=== PATIENT | female | born 1980 | race Caucasian/White ===

== ENCOUNTER 2016-09-02 04:37 | Inpatient (IN) | payer MEDICAID ==
[~2016-09-02] VITALS: Ht 161.3 cm; Wt 140.0 kg
[2016-09-02] MEDS ORDERED: OXYTOCIN 30U/ 0.9% NaCL 500ML 500 ML IV PRN (04:49)
[2016-09-02] MEDS ORDERED: AMPICILLIN 2 GM in SODIUM CHLORIDE 0.9% 100 ML IVPB STA (04:49)
[2016-09-02] MEDS ORDERED: OXYTOCIN 30U/ 0.9% NaCL 500ML 500 ML IV ONE (04:49)
[2016-09-02] MEDS: D5%-LACTATED RINGERS 1,000 ML IV SCH ×3 (04:49→17:52)
[2016-09-02] MEDS: LACTATED RINGERS 1,000 ML IV SCH ×4 (04:49→14:05)
[2016-09-02] MEDS ORDERED: ONDANSETRON 2MG/ML, 2ML IVPush PRN (05:00)
[2016-09-02] MEDS ORDERED: TERBUTALINE 1 MG/ML, 1ML IVPush PRN ×2 (05:00)
[2016-09-02] MEDS: AMPICILLIN 1 GM in SODIUM CHLORIDE 0.9% 50 ML IVPB SCH ×4 (05:00→17:15)
[2016-09-02] MEDS ORDERED: OXYTOCIN 30U/ 0.9% NaCL 500ML 500 ML ONE (05:00)
[2016-09-02] MEDS ORDERED: FENTANYL PF 100 MCG/2ML IVPush PRN (05:00)
[2016-09-02] MEDS ORDERED: PLEASE ENTER ALLERGIES MC SCH ×2 (05:00)
[2016-09-02] MEDS ORDERED: NEWBORN KIT ONE (05:00)
[2016-09-02] MEDS ORDERED: FENTANYL PF 100 MCG/2ML IV PRN (05:00)
[2016-09-02 05:22] VITALS: BP 142/69
[2016-09-02] MEDS ORDERED: FENTANYL PF 100 MCG/2ML ONE ×2 (07:22→10:32)
[2016-09-02 07:55] VITALS: BP 133/84
[2016-09-02] MEDS ORDERED: BUPIVACAINE 0.25% ONE (10:32)
[2016-09-02] MEDS ORDERED: FENTANYL/BUPIV./NS/PF 250 ML EPIDCONT ONE (10:32)
[2016-09-02] MEDS ORDERED: FENTANYL/BUPIV./NS/PF 250 ML EPIDCONT SCH (11:11)
[2016-09-02] MEDS ORDERED: LACTATED RINGERS 1,000 ML IVBOLUS PRN (11:30)
[2016-09-02 11:41] VITALS: BP 137/74
[2016-09-02 17:44] VITALS: BP 133/73
[2016-09-02] MEDS: OXYTOCIN 30U/ 0.9% NaCL 500ML 500 ML IV SCH (19:05)
[2016-09-02] MEDS ORDERED: MISOPROSTOL 200 MCG TABLET PR PRN (19:30)
[2016-09-02] MEDS ORDERED: DIPH,PERTUSS(ACELL),TET VAC/PF NC IM-VACC PRN (19:30)
[2016-09-02] MEDS ORDERED: CARBOPROST TROMETHAMINE 250 MCG/ML, 1ML IM PRN (19:30)
[2016-09-02] MEDS ORDERED: RHOGAM FROM BLOOD BANK 1 NOTE EA IM/IV ONE (19:30)
[2016-09-02] MEDS ORDERED: ACETAMINOPHEN 325 MG TABLET PO PRN (19:30)
[2016-09-02] MEDS ORDERED: OXYcodone/APAP 5/325MG TABLET PO PRN ×2 (19:30)
[2016-09-02] MEDS ORDERED: MEASLES,MUMPS&RUBELLA VACC/PF 0.5 ML SQ PRN (19:30)
[2016-09-02] MEDS: LABETALOL 200 MG TABLET PO SCH (21:00)
[2016-09-02 22:10] VITALS: BP 105/66
[2016-09-03 01:50] VITALS: BP 124/79
[2016-09-03 05:00] VITALS: BP 122/76
[2016-09-03] MEDS: OXYTOCIN 30U/ 0.9% NaCL 500ML 500 ML IV SCH ×2 (05:05→15:05)
[2016-09-03] MEDS: IBUPROFEN 600 MG TABLET PO PRN ×2 (05:19→14:43)
[2016-09-03 07:45] VITALS: BP 116/75
[2016-09-03] MEDS: LABETALOL 200 MG TABLET PO SCH ×2 (08:00→18:19)
[2016-09-03] MEDS: PRENATAL VIT/IRON/FA 1 EACH TABLET PO SCH (09:02)
[2016-09-03] MEDS: DOCUSATE 100 MG CAPSULE PO PRN (09:02)
[2016-09-03 12:05] VITALS: BP 122/82
[2016-09-03 16:20] VITALS: BP 131/87
[2016-09-03 20:20] VITALS: BP 128/83
[2016-09-04 00:20] VITALS: BP 124/80
[2016-09-04] MEDS: OXYTOCIN 30U/ 0.9% NaCL 500ML 500 ML IV SCH ×2 (01:05→11:05)
[2016-09-04 04:03] VITALS: BP 107/67
[2016-09-04 08:20] VITALS: BP 160/97
[2016-09-04] MEDS: IBUPROFEN 600 MG TABLET PO PRN ×2 (08:25→18:17)
[2016-09-04] MEDS: DOCUSATE 100 MG CAPSULE PO PRN (08:25)
[2016-09-04] MEDS: PRENATAL VIT/IRON/FA 1 EACH TABLET PO SCH (08:25)
[2016-09-04] MEDS: LABETALOL 200 MG TABLET PO SCH ×2 (08:30→18:17)
[2016-09-04 18:17] VITALS: BP 142/94
[2016-09-04] MEDS ORDERED: IBUP-1222 PO (19:26)
[2016-09-04] MEDS ORDERED: OXYC-302 PO (19:27)
[2016-09-04] MEDS ORDERED: LABE200T3 PO (19:28)
== END 2016-09-04 20:08 | disposition home or self-care (01) | DRG 774 ==
LOC: LDIP 04:37 → 2NW 22:07
PROVIDERS: ADMIT Obstetrics & Gynecology Maternal & Fetal Medicine; ATTEND Obstetrics & Gynecology Maternal & Fetal Medicine
PROC: 10E0XZZ Delivery of Products of Conception, External Approach (ICD-10-PCS; principal; 2016-09-02)
PROC: 3E033VJ Introduction of Other Hormone into Peripheral Vein, Percutaneous Approach (ICD-10-PCS; 2016-09-02)
DX: O10.92 Unspecified pre-existing hypertension complicating childbirth (principal); Z68.43 Body mass index [BMI] 50.0-59.9, adult; O99.214 Obesity complicating childbirth; E66.01 Morbid (severe) obesity due to excess calories; O35.0XX0 Maternal care for (suspected) central nervous system malformation in fetus, not applicable or unspecified; O99.824 Streptococcus B carrier state complicating childbirth; Z23 Encounter for immunization; Z37.0 Single live birth; Z3A.39 39 weeks gestation of pregnancy
CPT/HCPCS: 36415; 82962; 85025; 86850; 86900; J0290; J3010; J2590; J7120; J7121

== ENCOUNTER 2019-09-13 03:27 | Inpatient (IN) | payer MEDICAID ==
[~2019-09-13] VITALS: Ht 160 cm; Wt 147.6 kg
[~2019-09-13 03:27] MED LIST: IBUP-1222 PO; LABE200T6 PO; OXYC-302 PO
[2019-09-13] MEDS ORDERED: SODIUM CHLORIDE 0.9% 1,000ML IVBOLUS ONE ×2 (04:00→12:00)
--- NOTE | 2019-09-13 04:15 | NUR ---
PATIENT UPDATED ON PLAN OF CARE. LAB AT BEDSIDE COLLECTING LABS.
[2019-09-13 04:35] LABS: MEAN CORPUSCULAR HEMOGLOBIN 26.6 pg (27.0-34.8); MEAN CORPUSCULAR VOLUME 80.6 fL (80-100); MEAN PLATELET VOLUME 7.3 fL (7.4-10.4); PLATELET COUNT 184 x10^3/uL (130-400); RED BLOOD COUNT 4.38 x10^6/uL (3.82-5.3); RED CELL DISTRIBUTION WIDTH 14.9 % (9.6-15.2)
[2019-09-13 04:42] LABS: ALANINE AMINOTRANSFERASE 36 U/L (12-78); ALBUMIN 2.6 g/dL (3.4-5.0); ANION GAP 11 mmol/L (5-15); CALCIUM 7.5 mg/dL (8.5-10.1); CHLORIDE 96 mmol/L (98-107); CREATININE 2.58 mg/dL (0.55-1.02)
[2019-09-13 04:45] LABS: ALKALINE PHOSPHATASE 82 U/L (45-117); BILIRUBIN,TOTAL 0.9 mg/dL (0.2-1.0); TOTAL PROTEIN 6.9 g/dL (6.4-8.2)
[2019-09-13] MEDS ORDERED: POTASSIUM CHLORIDE 20 MEQ in SODIUM CHLORIDE 0.9% 250 ML IV ONE (05:00)
[2019-09-13 05:01] LABS: MD YES
[2019-09-13 05:02] LABS: <PLATELET ESTIMATE> ADEQUATE; <PLT MORPHOLOGY> NORMAL PLT MORPH; <RBC MORPHOLOGY> NORMAL; BAND#(MANUAL) 0.92 x10^3/uL; BANDS%(MANUAL) 4 % (0-7); LYMPH#(MANUAL) 1.37 x10^3/uL (1-3.4); LYMPHS% (MANUAL) 6 % (22-44); METAMYELOCYTES# (MANUAL) 0.23 x10^3/uL (0-0); METAMYELOCYTES% (MANUAL) 1 % (0-1); MONOS#(MANUAL) 0.92 x10^3/uL (0.3-2.7); MONOS% (MANUAL) 4 % (2-9); SEG#(MANUAL) 19.47 x10^3/uL (1.8-6.8); SEGS% (MANUAL) 85 % (42-75)
[2019-09-13] MEDS ORDERED: LACTATED RINGERS 1,000 ML IVBOLUS ONE (05:30)
[2019-09-13] MEDS ORDERED: NS + 20MEQ KCL 1,000 ML IV SCH (05:53)
--- NOTE | 2019-09-13 06:36 | NUR ---
PATIENT TO RESTROOM, TOLERATED WELL. AMBULATORY WITHOUT COMPLICATIONS TO RESTROOM. PATIENT WILL BE TRANSFERED UPSTRAIRS TO ADMISSION ROOM 403-1
[2019-09-13] MEDS ORDERED: FENTANYL PF 100 MCG/2ML ONE (07:09)
[2019-09-13] MEDS ORDERED: MIDAZOLAM 1 MG/ML, 2ML ONE (07:09)
[2019-09-13] MEDS ORDERED: CHLORHEXIDINE 15 ML UDC ONE (07:25)
[2019-09-13] MEDS ORDERED: hydrALAzine 20 MG/ML, 1ML IVPush PRN (07:30)
[2019-09-13] MEDS: LACTATED RINGERS 1,000 ML IV SCH ×2 (07:30→17:22)
[2019-09-13] MEDS ORDERED: ZOLPIDEM 5MG TABLET PO PRN (07:30)
[2019-09-13] MEDS ORDERED: POLYETHYLENE GLYCOL 17 GM PACKET PO PRN (07:30)
[2019-09-13] MEDS ORDERED: CHLORHEXIDINE 15 ML UDC MM ONE (07:30)
[2019-09-13] MEDS ORDERED: PHARMACY MAY ADJ FOR RENAL FX MC SCH (07:30)
[2019-09-13] MEDS ORDERED: BISACODYL 10 MG SUPP PR PRN (07:30)
[2019-09-13] MEDS ORDERED: METOCLOPRAMIDE 5 MG/ML, 2ML IVPush PRN (07:30)
[2019-09-13] MEDS ORDERED: morphine SULFATE 10 MG/ML, 1ML IV PRN (07:30)
[2019-09-13] MEDS ORDERED: SODIUM CHLORIDE 0.9% 1,000ML IV ONE (07:30)
[2019-09-13] MEDS ORDERED: SUCCINYLCHOLINE 20 MG/ML, 10ML ONE (07:37)
[2019-09-13] MEDS ORDERED: PROPOFOL 10 MG/ML, 20ML ONE (07:37)
[2019-09-13] MEDS ORDERED: HYDROcodone/APAP 7.5-325MG/15ML UDC PO PRN (08:00)
[2019-09-13] MEDS ORDERED: FENTANYL PF 100 MCG/2ML IV PRN (08:00)
[2019-09-13] MEDS ORDERED: PROMETHAZINE 25 MG/ML, 1ML IVPush PRN (08:00)
[2019-09-13] MEDS ORDERED: MEPERIDINE/PF 25MG/0.5ML IVPush PRN (08:00)
[2019-09-13] MEDS ORDERED: HYDROmorphone 1 MG/ML, 1ML INJ IVPush PRN (08:00)
[2019-09-13] MEDS: SENNA/DOCUSATE TABLET PO SCH (09:00)
[2019-09-13] MEDS ORDERED: FAMOTIDINE 20 MG TABLET PO SCH (09:00)
[2019-09-13] MEDS ORDERED: SODIUM CHLORIDE 0.9%, 500ML IVBOLUS ONE (09:00)
[2019-09-13] MEDS ORDERED: ALBUMIN HUMAN 25% 100 ML IV ONE (09:00)
[2019-09-13] MEDS: PIPERACILLIN/TAZO/PMX 3.375GM 50 ML IVPB SCH ×3 (09:30→20:51)
[2019-09-13 09:59] VITALS: BP 85/50
[2019-09-13 11:48] VITALS: BP 80/54
[2019-09-13 12:27] VITALS: BP 99/60
[2019-09-13] MEDS ORDERED: AMLO5TAB10 PO (12:37)
[2019-09-13] MEDS ORDERED: HYDR25TA6 PO (12:37)
[2019-09-13 13:12] LABS: MICROSCOPIC INDICATED
[2019-09-13 18:26] VITALS: BP 94/65
[2019-09-13] MEDS: FAMOTIDINE 20 MG TABLET PO SCH (20:51)
[2019-09-13] MEDS: ALBUMIN HUMAN 25% 100 ML IV SCH (20:52)
[2019-09-13] MEDS ORDERED: HYDROcodone/APAP 5/325 TABLET ONE (21:14)
[2019-09-14 02:00] VITALS: BP 103/45
[2019-09-14] MEDS: LACTATED RINGERS 1,000 ML IV SCH (03:00)
[2019-09-14] MEDS: ALBUMIN HUMAN 25% 100 ML IV SCH (03:00)
[2019-09-14] MEDS: PIPERACILLIN/TAZO/PMX 3.375GM 50 ML IVPB SCH ×4 (03:00→21:07)
[2019-09-14] MEDS: BENZONATATE 100 MG CAPSULE PO PRN ×2 (04:54→21:07)
[2019-09-14 05:35] LABS: MEAN CORPUSCULAR HEMOGLOBIN 26.4 pg (27.0-34.8); MEAN CORPUSCULAR HGB CONC 32.9 g/dL (32.4-35.8); MEAN CORPUSCULAR VOLUME 80.2 fL (80-100); PLATELET COUNT 145 x10^3/uL (130-400); RED BLOOD COUNT 3.72 x10^6/uL (3.82-5.3); RED CELL DISTRIBUTION WIDTH 15.8 % (9.6-15.2)
[2019-09-14 05:36] LABS: ALBUMIN 2.8 g/dL (3.4-5.0); ANION GAP 9 mmol/L (5-15); CALCIUM 7.2 mg/dL (8.5-10.1); CHLORIDE 105 mmol/L (98-107); CHOLESTEROL, TOTAL 107 mg/dL (140-239)
[2019-09-14 05:45] LABS: ALANINE AMINOTRANSFERASE 31 U/L (12-78); ALKALINE PHOSPHATASE 111 U/L (45-117); BILIRUBIN,TOTAL 1.1 mg/dL (0.2-1.0); CHOL/HDL RATIO 10.7; CREATININE 2.06 mg/dL (0.55-1.02); HDL CHOL % 9 % (28-40); HDL CHOLESTEROL (DIRECT) 10 mg/dL (40-60); LDL CHOLESTEROL,CALCULATED 33 mg/dL (54-169); LDL/HDL RATIO 3.3 (0.5-3.0); TOTAL PROTEIN 6.6 g/dL (6.4-8.2); TRIGLYCERIDES 320 mg/dL (50-200); VLDL CHOLESTEROL 64 mg/dL (0-25)
[2019-09-14 06:10] LABS: MD YES
[2019-09-14 06:12] LABS: <PLATELET ESTIMATE> ADEQUATE; <PLT MORPHOLOGY> NORMAL PLT MORPH; <RBC MORPHOLOGY> NORMAL; BAND#(MANUAL) 1.85 x10^3/uL; BANDS%(MANUAL) 13 % (0-7); LYMPH#(MANUAL) 0.57 x10^3/uL (1-3.4); LYMPHS% (MANUAL) 4 % (22-44); MONOS#(MANUAL) 0.43 x10^3/uL (0.3-2.7); MONOS% (MANUAL) 3 % (2-9); SEG#(MANUAL) 11.36 x10^3/uL (1.8-6.8); SEGS% (MANUAL) 80 % (42-75); TOXIC GRAN 1+
[2019-09-14] MEDS: ACETAMINOPHEN 325 MG TABLET PO PRN ×2 (06:28→21:07)
[2019-09-14 06:43] VITALS: BP 111/71
[2019-09-14] MEDS: SENNA/DOCUSATE TABLET PO SCH (08:44)
[2019-09-14] MEDS ORDERED: MAGNESIUM SULFATE PMX 4GM/100M 100 ML IV ONE (09:30)
[2019-09-14] MEDS ORDERED: POTASSIUM CHLORIDE 20 MEQ TAB.ER.PRT PO ONE ×2 (09:30→16:30)
[2019-09-14] MEDS ORDERED: FUROSEMIDE 40 MG/4 ML IV ONE (12:30)
[2019-09-14 14:37] VITALS: BP 126/86
[2019-09-14 18:41] VITALS: BP 114/67
[2019-09-14] MEDS: FAMOTIDINE 20 MG TABLET PO SCH (21:07)
[2019-09-15 01:47] VITALS: BP 98/67
[2019-09-15] MEDS: PIPERACILLIN/TAZO/PMX 3.375GM 50 ML IVPB SCH ×4 (03:06→21:57)
[2019-09-15 05:48] LABS: ANION GAP 7 mmol/L (5-15); CALCIUM 8.5 mg/dL (8.5-10.1); CHLORIDE 103 mmol/L (98-107); CREATININE 1.65 mg/dL (0.55-1.02)
[2019-09-15 05:56] LABS: MEAN CORPUSCULAR HEMOGLOBIN 26.5 pg (27.0-34.8); MEAN CORPUSCULAR VOLUME 80.2 fL (80-100); MEAN PLATELET VOLUME 7.7 fL (7.4-10.4); PLATELET COUNT 199 x10^3/uL (130-400); RED BLOOD COUNT 4.05 x10^6/uL (3.82-5.3); RED CELL DISTRIBUTION WIDTH 16.3 % (9.6-15.2)
[2019-09-15 06:21] VITALS: BP 111/66
[2019-09-15 06:22] LABS: MD YES
[2019-09-15 06:25] LABS: ANISOCYTOSIS 1+; BAND#(MANUAL) 0.57 x10^3/uL; BANDS%(MANUAL) 4 % (0-7); BASOS#(MANUAL) 0.29 x10^3/uL (0-0.1); BASOS% (MANUAL) 2 % (0-1); EOS#(MANUAL) 0.43 x10^3/uL (0.0-0.4); EOS% (MANUAL) 3 % (1-7); LYMPH#(MANUAL) 2.57 x10^3/uL (1-3.4); LYMPHS% (MANUAL) 18 % (22-44); MONOS#(MANUAL) 0.29 x10^3/uL (0.3-2.7); MONOS% (MANUAL) 2 % (2-9); NRBC % (MANUAL) 2 % (0-1); SEG#(MANUAL) 10.15 x10^3/uL (1.8-6.8); SEGS% (MANUAL) 71 % (42-75)
[2019-09-15 06:26] LABS: <PLATELET ESTIMATE> ADEQUATE; <PLT MORPHOLOGY> NORMAL PLT MORPH; TOXIC GRAN 1+
[2019-09-15] MEDS: SENNA/DOCUSATE TABLET PO SCH (08:41)
[2019-09-15] MEDS: ACETAMINOPHEN 325 MG TABLET PO PRN ×2 (11:52→19:46)
[2019-09-15 12:51] VITALS: BP 116/79
[2019-09-15] MEDS ORDERED: FUROSEMIDE 20 MG/2 ML IV ONE (16:00)
[2019-09-15] MEDS ORDERED: POTASSIUM CHLORIDE 20 MEQ TAB.ER.PRT PO ONE (16:00)
[2019-09-15] MEDS: HEPARIN 5,000 UNITS/ML, 1ML SQ SCH (16:27)
[2019-09-15 18:50] VITALS: BP 137/84
[2019-09-15] MEDS: FAMOTIDINE 20 MG TABLET PO SCH (19:47)
[2019-09-16 00:29] VITALS: BP 119/80
[2019-09-16] MEDS: HEPARIN 5,000 UNITS/ML, 1ML SQ SCH ×3 (00:43→17:27)
[2019-09-16] MEDS: PIPERACILLIN/TAZO/PMX 3.375GM 50 ML IVPB SCH ×2 (03:44→09:54)
[2019-09-16 06:22] LABS: BASOPHILS # (AUTO) 0.03 x10^3/uL (0-0.1); BASOPHILS % (AUTO) 0 % (0-1); EOSINOPHILS # (AUTO) 0.21 x10^3/uL (0-0.4); EOSINOPHILS % (AUTO) 2 % (1-7); LYMPHOCYTES # (AUTO) 1.46 x10^3/uL (1-3.4); LYMPHOCYTES % (AUTO) 13 % (22-44); MD NO; MEAN CORPUSCULAR HEMOGLOBIN 26.1 pg (27.0-34.8); MEAN CORPUSCULAR HGB CONC 32.7 g/dL (32.4-35.8); MEAN CORPUSCULAR VOLUME 79.8 fL (80-100); MEAN PLATELET VOLUME 7.6 fL (7.4-10.4); MONOCYTES # (AUTO) 0.95 x10^3/uL (0.2-0.8); MONOCYTES % (AUTO) 9 % (2-9); NEUTROPHILS # (AUTO) 8.39 x10^3/uL (1.8-6.8); NEUTROPHILS % (AUTO) 76 % (42-75); PLATELET COUNT 255 x10^3/uL (130-400); RED BLOOD COUNT 4.26 x10^6/uL (3.82-5.3); RED CELL DISTRIBUTION WIDTH 15.8 % (9.6-15.2)
[2019-09-16 06:25] LABS: ANION GAP 8 mmol/L (5-15); CALCIUM 8.7 mg/dL (8.5-10.1); CHLORIDE 104 mmol/L (98-107)
[2019-09-16 07:18] VITALS: BP 119/84
[2019-09-16] MEDS: SENNA/DOCUSATE TABLET PO SCH (08:22)
[2019-09-16] MEDS: MAGNESIUM OXIDE 400 MG TABLET PO SCH (09:53)
[2019-09-16] MEDS: POTASSIUM CHLORIDE 20 MEQ TAB.ER.PRT PO SCH ×2 (09:53→17:27)
[2019-09-16] MEDS: NEUTRA PHOS K 250 MG TABLET PO SCH ×2 (09:53→20:03)
[2019-09-16 12:06] VITALS: BP 135/94
[2019-09-16] MEDS ORDERED: CEFTRIAXONE PMX 2GM/50ML 50 ML IV SCH (16:00)
[2019-09-16] MEDS: ACETAMINOPHEN 325 MG TABLET PO PRN ×2 (16:22→22:49)
[2019-09-16 18:20] VITALS: BP 118/76
[2019-09-16] MEDS: FAMOTIDINE 20 MG TABLET PO SCH (20:03)
[2019-09-17] MEDS: HEPARIN 5,000 UNITS/ML, 1ML SQ SCH ×3 (00:18→15:32)
[2019-09-17 00:39] VITALS: BP 139/91
[2019-09-17 06:15] LABS: BASOPHILS # (AUTO) 0.01 x10^3/uL (0-0.1); BASOPHILS % (AUTO) 0 % (0-1); EOSINOPHILS % (AUTO) 2 % (1-7); LYMPHOCYTES # (AUTO) 2.12 x10^3/uL (1-3.4); LYMPHOCYTES % (AUTO) 19 % (22-44); MD NO; MEAN CORPUSCULAR HGB CONC 32.9 g/dL (32.4-35.8); MEAN CORPUSCULAR VOLUME 79.2 fL (80-100); MEAN PLATELET VOLUME 7.3 fL (7.4-10.4); MONOCYTES # (AUTO) 1.15 x10^3/uL (0.2-0.8); MONOCYTES % (AUTO) 10 % (2-9); NEUTROPHILS # (AUTO) 7.74 x10^3/uL (1.8-6.8); NEUTROPHILS % (AUTO) 69 % (42-75); PLATELET COUNT 293 x10^3/uL (130-400); RED BLOOD COUNT 4.31 x10^6/uL (3.82-5.3); RED CELL DISTRIBUTION WIDTH 15.8 % (9.6-15.2)
[2019-09-17 06:26] LABS: CHLORIDE 106 mmol/L (98-107)
[2019-09-17 06:35] LABS: ANION GAP 7 mmol/L (5-15); CALCIUM 8.6 mg/dL (8.5-10.1); CREATININE 1.09 mg/dL (0.55-1.02)
[2019-09-17 06:42] VITALS: BP 123/75
[2019-09-17] MEDS: MAGNESIUM OXIDE 400 MG TABLET PO SCH (07:52)
[2019-09-17] MEDS: SENNA/DOCUSATE TABLET PO SCH (07:53)
[2019-09-17] MEDS: LEVOFLOXACIN/PMX 750MG/150ML 150 ML IV SCH (11:38)
[2019-09-17] MEDS: ACETAMINOPHEN 325 MG TABLET PO PRN ×3 (11:41→23:25)
[2019-09-17 13:25] VITALS: BP 140/91
[2019-09-17 18:34] VITALS: BP 153/88
[2019-09-17] MEDS: FAMOTIDINE 20 MG TABLET PO SCH (20:07)
[2019-09-18] MEDS: HEPARIN 5,000 UNITS/ML, 1ML SQ SCH ×2 (00:05→07:35)
[2019-09-18 00:09] VITALS: BP 141/96
[2019-09-18 05:34] LABS: HCT (SEDRATE) 36.4 % (34.6-47.8)
[2019-09-18 05:37] LABS: BASOPHILS # (AUTO) 0.01 x10^3/uL (0-0.1); BASOPHILS % (AUTO) 0 % (0-1); EOSINOPHILS # (AUTO) 0.26 x10^3/uL (0-0.4); EOSINOPHILS % (AUTO) 2 % (1-7); LYMPHOCYTES # (AUTO) 2.19 x10^3/uL (1-3.4); LYMPHOCYTES % (AUTO) 18 % (22-44); MD NO; MEAN CORPUSCULAR HEMOGLOBIN 26.1 pg (27.0-34.8); MEAN CORPUSCULAR VOLUME 79.1 fL (80-100); MEAN PLATELET VOLUME 6.9 fL (7.4-10.4); MONOCYTES # (AUTO) 0.66 x10^3/uL (0.2-0.8); MONOCYTES % (AUTO) 6 % (2-9); NEUTROPHILS # (AUTO) 8.89 x10^3/uL (1.8-6.8); NEUTROPHILS % (AUTO) 74 % (42-75); PLATELET COUNT 362 x10^3/uL (130-400); RED BLOOD COUNT 4.64 x10^6/uL (3.82-5.3); RED CELL DISTRIBUTION WIDTH 15.8 % (9.6-15.2)
[2019-09-18 05:48] LABS: ANION GAP 9 mmol/L (5-15); CHLORIDE 106 mmol/L (98-107); CREATININE 1.05 mg/dL (0.55-1.02)
[2019-09-18 06:50] VITALS: BP 122/76
[2019-09-18] MEDS: FAMOTIDINE 20 MG TABLET PO SCH (07:35)
[2019-09-18] MEDS: MAGNESIUM OXIDE 400 MG TABLET PO SCH (07:35)
[2019-09-18] MEDS: SENNA/DOCUSATE TABLET PO SCH (07:36)
[2019-09-18] MEDS: LEVOFLOXACIN/PMX 750MG/150ML 150 ML IV SCH (10:08)
[2019-09-18] MEDS ORDERED: LEVO750T26 PO (12:01)
[2019-09-18 13:15] VITALS: BP 142/95
== END 2019-09-18 13:50 | disposition home or self-care (01) | DRG 720 ==
LOC: ED 05:16 → EDIP 06:01 → 4WST 09:41 → DCLOUNGE 09-18 13:40
PROVIDERS: ADMIT Internal Medicine; ATTEND Hospitalist
PROC: 0T9B70Z Drainage of Bladder with Drainage Device, Via Natural or Artificial Opening (ICD-10-PCS; 2019-09-13)
PROC: 0T778DZ Dilation of Left Ureter with Intraluminal Device, Via Natural or Artificial Opening Endoscopic (ICD-10-PCS; principal; 2019-09-13 07:30)
DX: A41.50 Gram-negative sepsis, unspecified (principal); N17.0 Acute kidney failure with tubular necrosis; E66.01 Morbid (severe) obesity due to excess calories; E83.39 Other disorders of phosphorus metabolism; E83.42 Hypomagnesemia; E87.1 Hypo-osmolality and hyponatremia; N13.6 Pyonephrosis; J98.11 Atelectasis; E87.6 Hypokalemia; I10 Essential (primary) hypertension; Z68.43 Body mass index [BMI] 50.0-59.9, adult; Z87.442 Personal history of urinary calculi; Z90.49 Acquired absence of other specified parts of digestive tract; Z88.8 Allergy status to other drugs, medicaments and biological substances
CPT/HCPCS: 36415; 71045; 74018; 76000; 80048; 80053; 80061; 81001; 82533; 83605; 83690; 83735; 84100; 84145; 84443; 84703; 85025; 85651; 86850; 86900; 87040; 87086; 93005; 96374; G0378; J0696; J1644; J1940; J1956; J2250; J2543; J2704; J3010; J3480; P9047; C2617; J0330; J2270; J3475; J7030; J7040; J7050; J7120

== ENCOUNTER 2019-09-26 15:42 | Inpatient (IN) | payer MEDICAID ==
[~2019-09-26] VITALS: Ht 160 cm; Wt 142.8 kg
[~2019-09-26 15:42] MED LIST changes: +AMLO5TAB10 PO; +HYDR25TA6 PO; +LEVO750T26 PO
[2019-09-26] MEDS ORDERED: PROMETHAZINE 25 MG/ML, 1ML ONE (16:19)
[2019-09-26] MEDS ORDERED: PROMETHAZINE 25 MG/ML, 1ML IM ONE (16:30)
[2019-09-26 16:38] LABS: BASOPHILS # (AUTO) 0.05 x10^3/uL (0-0.1); BASOPHILS % (AUTO) 0 % (0-1); EOSINOPHILS # (AUTO) 0.03 x10^3/uL (0-0.4); EOSINOPHILS % (AUTO) 0 % (1-7); LYMPHOCYTES # (AUTO) 1.83 x10^3/uL (1-3.4); LYMPHOCYTES % (AUTO) 15 % (22-44); MD NO; MEAN CORPUSCULAR HEMOGLOBIN 26.3 pg (27.0-34.8); MEAN CORPUSCULAR HGB CONC 33.2 g/dL (32.4-35.8); MEAN CORPUSCULAR VOLUME 79.2 fL (80-100); MEAN PLATELET VOLUME 7.1 fL (7.4-10.4); MONOCYTES % (AUTO) 4 % (2-9); NEUTROPHILS # (AUTO) 9.51 x10^3/uL (1.8-6.8); NEUTROPHILS % (AUTO) 80 % (42-75); PLATELET COUNT 395 x10^3/uL (130-400); RED BLOOD COUNT 4.72 x10^6/uL (3.82-5.3); RED CELL DISTRIBUTION WIDTH 15.3 % (9.6-15.2)
[2019-09-26 16:48] LABS: ALANINE AMINOTRANSFERASE 118 U/L (12-78); ALBUMIN 3.5 g/dL (3.4-5.0); ANION GAP 7 mmol/L (5-15); CALCIUM 8.9 mg/dL (8.5-10.1); CHLORIDE 106 mmol/L (98-107); CREATININE 1.98 mg/dL (0.55-1.02)
[2019-09-26 16:52] LABS: ALKALINE PHOSPHATASE 126 U/L (45-117); BILIRUBIN,TOTAL 0.3 mg/dL (0.2-1.0); TOTAL PROTEIN 8.7 g/dL (6.4-8.2)
[2019-09-26 17:05] LABS: MICROSCOPIC INDICATED
[2019-09-26] MEDS ORDERED: SODIUM CHLORIDE 0.9% 1,000 ML IV ONE ×2 (17:22→19:45)
[2019-09-26] MEDS ORDERED: ONDANSETRON 2MG/ML, 2ML IVPush ONE (17:30)
[2019-09-26] MEDS ORDERED: SODIUM CHLORIDE FLUSH 10ML SYR IVF ONE (17:30)
[2019-09-26] MEDS ORDERED: MORPHINE SULFATE 4 MG/ML, 1ML IVPush PRN (17:30)
[2019-09-26] MEDS ORDERED: ONDANSETRON 2MG/ML, 2ML ONE (17:43)
[2019-09-26] MEDS ORDERED: MORPHINE SULFATE 4 MG/ML, 1ML ONE (17:44)
[2019-09-26] MEDS ORDERED: CEFTRIAXONE PMX 1GM/50ML 50 ML IV ONE (18:30)
[2019-09-26] MEDS ORDERED: CEFTRIAXONE PMX 1GM/50ML 50 ML ONE (18:49)
[2019-09-26] MEDS ORDERED: LEVOFLOXACIN/PMX 750MG/150ML 150 ML IV SCH (19:00)
--- NOTE | 2019-09-26 19:19 | NUR ---
PT IN BED, DENIES ANY CURRENT NEEDS OR CONCERNS. RESTING WITHOUT ISSUE. FLUIDS CONTINUE INFUSING. PT DENIES ANY NEEDS OR CONCERNS AT THIS TIME, CALL LIGHT IN REACH.
[2019-09-26] MEDS ORDERED: OXYcodone IR 5MG TABLET PO PRN (19:30)
[2019-09-26] MEDS ORDERED: ACETAMINOPHEN 325 MG TABLET PO PRN (19:30)
[2019-09-26] MEDS ORDERED: BISACODYL 10 MG SUPP PR PRN (19:30)
[2019-09-26] MEDS ORDERED: POLYETHYLENE GLYCOL 17 GM PACKET PO PRN (19:30)
[2019-09-26] MEDS ORDERED: HYDROmorphone 1 MG/ML, 1ML INJ ONE (19:39)
[2019-09-26] MEDS: HYDROmorphone 1 MG/ML, 1ML INJ IV PRN ×2 (19:40→23:46)
[2019-09-26] MEDS ORDERED: SODIUM CHLORIDE FLUSH 10ML SYR IVF PRN (20:00)
[2019-09-26] MEDS ORDERED: LEVOFLOXACIN/PMX 750MG/150ML 150 ML ONE (20:30)
--- NOTE | 2019-09-26 21:22 | NUR ---
REPORT CALLED TO RECEIVING RN. PT RESTING IN BED, DENIES ANY NEEDS AT THIS TIME. CALL LIGHT IN REACH. AWAITING TRANSPORT AT THIS TIME.
[2019-09-26 22:00] VITALS: BP 101/69
[2019-09-26] MEDS: HEPARIN 5,000 UNITS/ML, 1ML SQ SCH (22:28)
[2019-09-26] MEDS ORDERED: ONDANSETRON 2MG/ML, 2ML IVPush PRN (22:30)
[2019-09-26 23:15] VITALS: BP 101/69
[2019-09-27 01:18] VITALS: BP 94/62
[2019-09-27] MEDS: HEPARIN 5,000 UNITS/ML, 1ML SQ SCH ×3 (06:00→21:29)
[2019-09-27 06:04] LABS: BASOPHILS # (AUTO) 0.07 x10^3/uL (0-0.1); BASOPHILS % (AUTO) 1 % (0-1); EOSINOPHILS % (AUTO) 1 % (1-7); LYMPHOCYTES # (AUTO) 2.53 x10^3/uL (1-3.4); LYMPHOCYTES % (AUTO) 26 % (22-44); MD NO; MEAN CORPUSCULAR HEMOGLOBIN 26.4 pg (27.0-34.8); MEAN CORPUSCULAR VOLUME 80.1 fL (80-100); MEAN PLATELET VOLUME 7.3 fL (7.4-10.4); MONOCYTES # (AUTO) 0.65 x10^3/uL (0.2-0.8); MONOCYTES % (AUTO) 7 % (2-9); NEUTROPHILS # (AUTO) 6.23 x10^3/uL (1.8-6.8); NEUTROPHILS % (AUTO) 65 % (42-75); PLATELET COUNT 311 x10^3/uL (130-400); RED BLOOD COUNT 3.97 x10^6/uL (3.82-5.3); RED CELL DISTRIBUTION WIDTH 14.9 % (9.6-15.2)
[2019-09-27 06:13] LABS: ALBUMIN 2.9 g/dL (3.4-5.0); ANION GAP 7 mmol/L (5-15); CHLORIDE 108 mmol/L (98-107)
[2019-09-27 06:19] LABS: ALANINE AMINOTRANSFERASE 80 U/L (12-78); ALKALINE PHOSPHATASE 108 U/L (45-117); BILIRUBIN,TOTAL 0.6 mg/dL (0.2-1.0); TOTAL PROTEIN 7.3 g/dL (6.4-8.2)
[2019-09-27 07:11] VITALS: BP 96/65
[2019-09-27] MEDS: SENNA/DOCUSATE TABLET PO SCH (07:36)
[2019-09-27] MEDS ORDERED: CHLORHEXIDINE 15 ML UDC MM ONE ×2 (12:30→13:00)
[2019-09-27] MEDS ORDERED: MIDAZOLAM 1 MG/ML, 2ML ONE (13:23)
[2019-09-27] MEDS ORDERED: FENTANYL PF 250 MCG/5ML ONE (13:24)
[2019-09-27] MEDS ORDERED: KETOROLAC 30 MG/1 ML ONE (13:26)
[2019-09-27] MEDS ORDERED: ROCURONIUM 10MG/ML,5ML ONE (13:42)
[2019-09-27] MEDS ORDERED: DEXAMETHASONE 4 MG/ML, 1ML ONE (13:42)
[2019-09-27] MEDS ORDERED: NEOSTIGMINE 1 MG/ML, 10ML ONE (13:42)
[2019-09-27] MEDS ORDERED: ONDANSETRON 2MG/ML, 2ML ONE (13:42)
[2019-09-27] MEDS ORDERED: GLYCOPYRROLATE 0.2MG/1ML, 5ML ONE (13:42)
[2019-09-27] MEDS ORDERED: CEFAZOLIN 1,000 MG ONE (13:42)
[2019-09-27] MEDS ORDERED: PROPOFOL 10 MG/ML, 20ML ONE (13:42)
[2019-09-27] MEDS ORDERED: ACETAMINOPHEN 325 MG TABLET PO PRN (14:00)
[2019-09-27] MEDS ORDERED: LABETALOL 5MG/ML, 20ML IV PRN (14:00)
[2019-09-27] MEDS ORDERED: HYDROmorphone 1 MG/ML, 1ML INJ IVPush PRN (14:00)
[2019-09-27] MEDS ORDERED: FENTANYL PF 100 MCG/2ML IV PRN (14:00)
[2019-09-27] MEDS ORDERED: OXYcodone 5 MG/5 ML ORAL.SOL UDC PO PRN (14:00)
[2019-09-27] MEDS ORDERED: HALOPERIDOL 5 MG/ML IV PRN (14:00)
[2019-09-27] MEDS ORDERED: PROMETHAZINE 25 MG/ML, 1ML IVPush PRN (14:00)
[2019-09-27] MEDS ORDERED: hydrALAzine 20 MG/ML, 1ML IV PRN (14:00)
[2019-09-27] MEDS ORDERED: morphine SULFATE 10 MG/ML, 1ML IVPush PRN (14:00)
[2019-09-27] MEDS ORDERED: MEPERIDINE/PF 25MG/0.5ML IVPush PRN (14:00)
[2019-09-27] MEDS ORDERED: OMNIPAQUE 350 MG/ML, 50 ML BOTTLE ONE (14:45)
[2019-09-27] MEDS ORDERED: FENTANYL PF 100 MCG/2ML ONE (15:12)
[2019-09-27] MEDS ORDERED: OXYcodone 5 MG/5 ML ORAL.SOL UDC ONE (15:12)
[2019-09-27] MEDS ORDERED: OXYcodone/APAP 5/325MG TABLET PO PRN (16:30)
[2019-09-27] MEDS ORDERED: SODIUM CHLORIDE 0.9% 1,000ML IVBOLUS ONE (17:00)
[2019-09-27 19:15] VITALS: BP 127/82
[2019-09-27] MEDS ORDERED: LEVOFLOXACIN/PMX 250MG/50ML 50 ML IV SCH (21:00)
[2019-09-28 00:15] VITALS: BP 110/73
[2019-09-28 03:48] VITALS: BP 118/81
[2019-09-28 05:58] LABS: BASOPHILS # (AUTO) 0.03 x10^3/uL (0-0.1); BASOPHILS % (AUTO) 0 % (0-1); EOSINOPHILS % (AUTO) 0 % (1-7); LYMPHOCYTES # (AUTO) 1.87 x10^3/uL (1-3.4); LYMPHOCYTES % (AUTO) 20 % (22-44); MD NO; MEAN CORPUSCULAR HEMOGLOBIN 26.5 pg (27.0-34.8); MEAN CORPUSCULAR HGB CONC 33.2 g/dL (32.4-35.8); MEAN CORPUSCULAR VOLUME 79.8 fL (80-100); MEAN PLATELET VOLUME 7.6 fL (7.4-10.4); MONOCYTES # (AUTO) 0.32 x10^3/uL (0.2-0.8); MONOCYTES % (AUTO) 3 % (2-9); NEUTROPHILS # (AUTO) 7.36 x10^3/uL (1.8-6.8); NEUTROPHILS % (AUTO) 77 % (42-75); PLATELET COUNT 341 x10^3/uL (130-400); RED BLOOD COUNT 4.22 x10^6/uL (3.82-5.3); RED CELL DISTRIBUTION WIDTH 15.1 % (9.6-15.2)
[2019-09-28 05:59] LABS: ALBUMIN 2.9 g/dL (3.4-5.0); ANION GAP 6 mmol/L (5-15); CALCIUM 8.7 mg/dL (8.5-10.1); CHLORIDE 110 mmol/L (98-107); CREATININE 1.71 mg/dL (0.55-1.02)
[2019-09-28] MEDS: HEPARIN 5,000 UNITS/ML, 1ML SQ SCH ×3 (06:35→21:00)
[2019-09-28 07:24] VITALS: BP 122/78
[2019-09-28] MEDS: HYDROCHLOROTHIAZIDE 25 MG TABLET PO SCH (09:00)
[2019-09-28] MEDS ORDERED: IBUPROFEN 600 MG TABLET PO PRN (09:00)
[2019-09-28] MEDS: AMLODIPINE 5 MG TABLET PO SCH (09:00)
[2019-09-28] MEDS ORDERED: LABETALOL 200 MG TABLET PO PRN (09:00)
[2019-09-28] MEDS: HYDROmorphone 1 MG/ML, 1ML INJ IV PRN (13:12)
[2019-09-28 13:23] VITALS: BP 105/72
[2019-09-28] MEDS: SENNA/DOCUSATE TABLET PO SCH (14:01)
[2019-09-28] MEDS: LINEZOLID PMX 600MG/300ML 300 ML IV SCH (15:15)
[2019-09-28 20:02] VITALS: BP 109/68
[2019-09-29 02:17] VITALS: BP 99/56
[2019-09-29] MEDS: LINEZOLID PMX 600MG/300ML 300 ML IV SCH ×2 (02:38→13:59)
[2019-09-29] MEDS: HEPARIN 5,000 UNITS/ML, 1ML SQ SCH ×2 (05:32→14:00)
[2019-09-29 07:58] VITALS: BP 109/75
[2019-09-29] MEDS: SENNA/DOCUSATE TABLET PO SCH (08:45)
[2019-09-29] MEDS: AMLODIPINE 5 MG TABLET PO SCH (09:00)
[2019-09-29] MEDS: HYDROCHLOROTHIAZIDE 25 MG TABLET PO SCH (09:00)
[2019-09-29] MEDS ORDERED: LINE600T12 PO (13:37)
[2019-09-29 13:50] VITALS: BP 110/80
== END 2019-09-29 16:00 | disposition home or self-care (01) | DRG 463 ==
LOC: ED 16:05 → EDIP 20:04 → 4NE 22:05
PROVIDERS: ADMIT Internal Medicine; ATTEND Family Medicine
PROC: 0T9B30Z Drainage of Bladder with Drainage Device, Percutaneous Approach (ICD-10-PCS; 2019-09-26)
PROC: 0TP98DZ Removal of Intraluminal Device from Ureter, Via Natural or Artificial Opening Endoscopic (ICD-10-PCS; 2019-09-27)
PROC: 0T768DZ Dilation of Right Ureter with Intraluminal Device, Via Natural or Artificial Opening Endoscopic (ICD-10-PCS; principal; 2019-09-27 14:00)
DX: N13.6 Pyonephrosis (principal); B95.2 Enterococcus as the cause of diseases classified elsewhere; E55.9 Vitamin D deficiency, unspecified; E21.3 Hyperparathyroidism, unspecified; Z16.21 Resistance to vancomycin; N39.41 Urge incontinence; D75.89 Other specified diseases of blood and blood-forming organs; Z87.442 Personal history of urinary calculi; Z88.8 Allergy status to other drugs, medicaments and biological substances; Z79.899 Other long term (current) drug therapy; Z20.828 Contact with and (suspected) exposure to other viral communicable diseases
CPT/HCPCS: 36415; 74176; 74420; 80053; 80069; 81001; 82306; 82330; 82360; 83735; 83970; 84100; 84703; 85025; 87040; 87077; 87086; 87186; 87635; 88300; C1726; G0378; J0690; J0696; J1100; J1170; J1644; J1885; J1956; J2020; J2250; J2405; J2550; J2704; J2710; J3010; Q9967; C1758; C2617; J2270; J7030

== ENCOUNTER 2020-05-02 14:29 | Emergency (ER) | payer MEDICAID ==
[~2020-05-02] VITALS: Ht 162.6 cm; Wt 149.5 kg
[~2020-05-02 14:29] MED LIST changes: +AMLO-210 PO; -AMLO5TAB10 PO; +LINE600T12 PO
[2020-05-02] MEDS ORDERED: DIPHENHYDRAMINE 50 MG/ML, 1ML IVPush ONE (15:00)
[2020-05-02] MEDS ORDERED: MORPHINE SULFATE 4 MG/ML, 1ML IVPush PRN (15:00)
[2020-05-02] MEDS ORDERED: METOCLOPRAMIDE 5 MG/ML, 2ML IVPush ONE (15:00)
[2020-05-02 15:04] LABS: MICROSCOPIC AUTO
[2020-05-02 15:15] LABS: BASOPHILS % (AUTO) 1 % (0-1); EOSINOPHILS % (AUTO) 1 % (1-7); LYMPHOCYTES % (AUTO) 26 % (22-44); MEAN CORPUSCULAR HEMOGLOBIN 25.6 pg (27.0-34.8); MEAN CORPUSCULAR HGB CONC 33.2 g/dL (32.4-35.8); MEAN PLATELET VOLUME 7.3 fL (7.4-10.4); MONOCYTES % (AUTO) 5 % (2-9); NEUTROPHILS % (AUTO) 67 % (42-75); PLATELET COUNT 286 x10^3/uL (130-400); RED BLOOD COUNT 5.58 x10^6/uL (3.82-5.3); RED CELL DISTRIBUTION WIDTH 15.8 % (9.6-15.2)
[2020-05-02 15:22] LABS: MD NO
[2020-05-02 15:23] LABS: ALBUMIN 4.1 g/dL (3.4-5.0); ANION GAP 6 mmol/L (5-15); CALCIUM 9.6 mg/dL (8.5-10.1); CHLORIDE 105 mmol/L (98-107); CREATININE 1.01 mg/dL (0.55-1.02)
[2020-05-02] MEDS ORDERED: CEFTRIAXONE PMX 1GM/50ML 50 ML IV ONE (15:30)
[2020-05-02] MEDS ORDERED: METOCLOPRAMIDE 5 MG/ML, 2ML ONE (15:32)
[2020-05-02] MEDS ORDERED: CEFTRIAXONE PMX 1GM/50ML 50 ML ONE (15:32)
[2020-05-02] MEDS ORDERED: DIPHENHYDRAMINE 50 MG/ML, 1ML ONE (15:32)
[2020-05-02 15:38] VITALS: BP 141/83
--- NOTE | 2020-05-02 16:21 | NUR ---
Patient/Caregiver given discharge instructions and they have confirmed that they understand the instructions. Patient ambulatory with steady gait.
== END 2020-05-02 16:08 | disposition home or self-care (01) ==
LOC: ED 15:06
DX: G44.209 Tension-type headache, unspecified, not intractable (principal); I10 Essential (primary) hypertension; N10 Acute pyelonephritis; Z88.6 Allergy status to analgesic agent
CPT/HCPCS: 36415; 74176; 80048; 81001; 82040; 85025; 87086; 87147; 96365; 96375; 99284; J0696; J1200; J2765

== ENCOUNTER 2020-08-03 22:11 | Emergency (ER) | payer MEDICAID ==
[~2020-08-03] VITALS: Ht 162.6 cm; Wt 146.7 kg
[~2020-08-03 22:11] MED LIST changes: -OXYC-302 PO; +OXYC1TAB14 PO
[2020-08-03] MEDS ORDERED: SODIUM CHLORIDE FLUSH 10ML SYR IVF ONE (22:30)
[2020-08-03] MEDS ORDERED: MORPHINE SULFATE 4 MG/ML, 1ML IVPush PRN (22:30)
[2020-08-03] MEDS ORDERED: PROMETHAZINE 25 MG/ML, 1ML IM ONE (22:30)
[2020-08-03] MEDS ORDERED: FAMOTIDINE 20 MG/2 ML IVPush ONE (22:30)
--- NOTE | 2020-08-03 22:30 | NUR ---
PT CAME IN TODAY C/O PAIN TO ABDOMEN AND FLANK PAIN. PT STATES SHE'S BEEN VOMITTING ANYTHING SHE DRINKS OR EATS. MD TO BEDSIDE TO CESAR PT. ORDERS RECEIVED
[2020-08-03] MEDS ORDERED: PROMETHAZINE 25 MG/ML, 1ML ONE (22:49)
[2020-08-03] MEDS ORDERED: FAMOTIDINE 20 MG/2 ML ONE (22:49)
[2020-08-03] MEDS ORDERED: MORPHINE SULFATE 4 MG/ML, 1ML ONE (22:49)
[2020-08-03 22:57] LABS: BASOPHILS % (AUTO) 1 % (0-1); EOSINOPHILS % (AUTO) 2 % (1-7); LYMPHOCYTES % (AUTO) 30 % (22-44); MEAN CORPUSCULAR HGB CONC 33.4 g/dL (32.4-35.8); MEAN PLATELET VOLUME 7.4 fL (7.4-10.4); MONOCYTES % (AUTO) 5 % (2-9); NEUTROPHILS % (AUTO) 62 % (42-75); PLATELET COUNT 313 x10^3/uL (130-400); RED BLOOD COUNT 5.44 x10^6/uL (3.82-5.3); RED CELL DISTRIBUTION WIDTH 15.1 % (9.6-15.2)
--- NOTE | 2020-08-03 23:05 | NUR ---
PIV TO RIGHT HAND X1 ATTEMPT 18G, STARTED AND IVF NS [id number] STARTED TO RUN OVER ONE HOUR. BLOOD COLLECTED AND GIVEN TO ROAD BOSS TO SEND TO LAB. PT TOLERATED WELL, AND MEDICATED PER EMAR. PT ALREDY TO XRAY TO HAVE ABDOMEN XRAYS DONE. RESTING COMFORTABLY IN [facility], PT ON HER PHONE, NO ACUTE DISTRESS AT THIS TIME, AND ON CR MONITOR, SIDERAILS UP X2 AND CALL LIGHT WITHIN REACH.
[2020-08-03 23:08] LABS: ALANINE AMINOTRANSFERASE 105 U/L (12-78); ALBUMIN 3.8 g/dL (3.4-5.0); ANION GAP 8 mmol/L (5-15); CALCIUM 9.4 mg/dL (8.5-10.1); CHLORIDE 107 mmol/L (98-107); CREATININE 0.86 mg/dL (0.55-1.02)
[2020-08-03 23:12] LABS: ALKALINE PHOSPHATASE 78 U/L (45-117); BILIRUBIN,TOTAL 0.3 mg/dL (0.2-1.0); TOTAL PROTEIN 8.4 g/dL (6.4-8.2)
[2020-08-03 23:14] LABS: MD NO
[2020-08-03] MEDS ORDERED: POTASSIUM CHLORIDE 20 MEQ TAB.ER.PRT ONE (23:46)
--- NOTE | 2020-08-03 23:52 | NUR ---
PT A&OX4, NO ACUTE DISTRESS. IV INTACT. PT CALM AND COOPERATIVE WITHOUT COMPLAINTS AT THIS TIME. PAIN MEDS HAVE WORKED, SEE REASSESMENT. MEDS GIVEN PER EMAR. AND PT TOLERATED WELL, UP AND AMBULATED TO COMMODE TO PROVIDE URINE SAMPLE, AND WAS SENT TO LAB.
[2020-08-04] MEDS ORDERED: POTASSIUM CHLORIDE 20 MEQ TAB.ER.PRT PO ONE
[2020-08-04 00:03] LABS: MICROSCOPIC INDICATED
[2020-08-04 00:23] VITALS: BP 132/80
[2020-08-04] MEDS ORDERED: CEFTRIAXONE 1,000 MG IV ONE (00:30)
--- NOTE | 2020-08-04 01:07 | NUR ---
PT A&OX4, NO ACUTE DISTRESS. ANTIBIOTICS FINISHED, AND F/U AND D/C INSTRUCTIONS GIVEN TO PT AND SHE V/U. PIV D/C'D AND CATH TIP INTACT.
== END 2020-08-04 01:17 | disposition home or self-care (01) ==
LOC: ED 23:17
DX: N30.00 Acute cystitis without hematuria (principal); K29.00 Acute gastritis without bleeding; R10.13 Epigastric pain; R73.9 Hyperglycemia, unspecified; R11.2 Nausea with vomiting, unspecified; R19.7 Diarrhea, unspecified; R94.5 Abnormal results of liver function studies; I10 Essential (primary) hypertension; Z90.49 Acquired absence of other specified parts of digestive tract
CPT/HCPCS: 36415; 74022; 80053; 81001; 83690; 84703; 85025; 87086; 87147; 96372; 96374; 96375; 99284; J0696; J2270; J2550

== ENCOUNTER 2020-10-18 06:00 | Inpatient (IN) | payer MEDICAID ==
[~2020-10-18] VITALS: Ht 162.6 cm; Wt 145.2 kg
[2020-10-18] MEDS ORDERED: SODIUM CHLORIDE FLUSH 10ML SYR IVF ONE (06:30)
[2020-10-18] MEDS ORDERED: SODIUM CHLORIDE 0.9% 1,000ML IV ONE (06:30)
[2020-10-18] MEDS ORDERED: ONDANSETRON 2MG/ML, 2ML IVPush ONE (06:30)
[2020-10-18 06:51] LABS: BASOPHILS % (AUTO) 1 % (0-1); EOSINOPHILS % (AUTO) 2 % (1-7); LYMPHOCYTES % (AUTO) 18 % (22-44); MEAN PLATELET VOLUME 7.8 fL (7.4-10.4); MONOCYTES % (AUTO) 5 % (2-9); NEUTROPHILS % (AUTO) 75 % (42-75); PLATELET COUNT 247 x10^3/uL (130-400); RED BLOOD COUNT 5.55 x10^6/uL (3.82-5.3); RED CELL DISTRIBUTION WIDTH 15.9 % (9.6-15.2)
--- NOTE | 2020-10-18 06:53 | NUR ---
BEDSIDE REPORT RECEIVED FROM JONNIE GERBER
[2020-10-18] MEDS ORDERED: ONDANSETRON 2MG/ML, 2ML ONE (06:56)
[2020-10-18] MEDS ORDERED: MORPHINE SULFATE 4 MG/ML, 1ML ONE ×4 (06:56→10:52)
--- NOTE | 2020-10-18 07:00 | NUR ---
PT PRESENTS TO ED WITH C/O 8/10 R FLANK PAIN AND ABD PAIN THROUGHOUT. PT STATES THEY HAVE HX OF KIDNEY STONES. PT A&O, RESPS EVEB AND UNLABORED, VSS, NADN.
[2020-10-18] MEDS: MORPHINE SULFATE 4 MG/ML, 1ML IVPush PRN ×4 (07:01→10:55)
[2020-10-18 07:04] LABS: ALBUMIN 3.7 g/dL (3.4-5.0); ANION GAP 7 mmol/L (5-15); CALCIUM 9.3 mg/dL (8.5-10.1); CHLORIDE 109 mmol/L (98-107); CREATININE 1.08 mg/dL (0.55-1.02)
[2020-10-18 07:26] LABS: MICROSCOPIC INDICATED
--- NOTE | 2020-10-18 07:27 | NUR ---
PT MEDICATED PER ORDER, TOLERATING WELL. STATES PEAK PAIN HAS DECREASED TO 7/10 AT THIS TIME. PT A&O, RESPS EVEN AND UNLABORED, VSS, FLUIDS INFUSING, NADN. WARM BLANKET PROVIDED, CALL LIGHT IN REACH.
--- NOTE | 2020-10-18 07:37 | NUR ---
pt to us
--- NOTE | 2020-10-18 08:00 | NUR ---
pt back from us
--- NOTE | 2020-10-18 09:16 | NUR ---
preceptor RN note: pt c/o 01/21 flank pain s/p US, requested second dose of morphine. pt medicated per emar by BUZZ Ricardo, pain now 11/21. straight cath ua obtained by BUZZ Ricardo, walked to lab. awaiting UA results and dispo.
[2020-10-18 09:32] LABS: MICROSCOPIC AUTO
--- NOTE | 2020-10-18 10:15 | NUR ---
pt remedicated for pain per order, tolerated well. 2L o2 nc applied to prevent desaturation. pt a&o, resps even and unlabored, vss. call light in reach.
[2020-10-18] MEDS ORDERED: DIPHENHYDRAMINE 50 MG/ML, 1ML IVPush ONE (10:30)
[2020-10-18] MEDS ORDERED: SODIUM CHLORIDE 0.9% IVPush ONE (11:30)
[2020-10-18] MEDS ORDERED: LIDOCAINE IVPush ONE (11:30)
--- NOTE | 2020-10-18 11:35 | NUR ---
lidocaine drip started per order for pain control. pt tolerating well. pt a&o, resps even and unlabored, vss, all monitors attached, nsr with no ectopy or arrhythmias. this rn will stay in room until lidocaine drip admin is complete (approx 10 min).
--- NOTE | 2020-10-18 11:42 | NUR ---
lidocaine drip complete, pt restgin in bed, states pain is under much better control. vss, nadn.
--- NOTE | 2020-10-18 11:56 | NUR ---
preceptor RN note: pt reports pain now down to 5/10 s/p lidocaine infusion. pt is on all monitors, sinus tach rate 100s with no ectopy on court recording monitor. EDMD VanBibber at bedside to update pt with results and POC.
[2020-10-18] MEDS ORDERED: PHEN37.53 PO (12:02)
[2020-10-18] MEDS ORDERED: vitamin d PO (12:02)
[2020-10-18] MEDS ORDERED: METF500T17 PO (12:02)
[2020-10-18] MEDS ORDERED: [UNRECOGNIZED DRUG - CODE] IM (12:02)
[2020-10-18] MEDS ORDERED: HYDR12.517 PO (12:02)
[2020-10-18] MEDS ORDERED: OXYcodone/APAP 10/325MG TABLET PO ONE (12:30)
[2020-10-18] MEDS ORDERED: OXYcodone/APAP 10/325MG TABLET ONE (12:31)
--- NOTE | 2020-10-18 13:21 | NUR ---
report given to receiving renetta moran
[2020-10-18 14:04] VITALS: BP 125/65
[2020-10-18] MEDS ORDERED: ENALAPRILAT 1.25 MG/ML, 2ML IVPush PRN (15:00)
[2020-10-18] MEDS: LACTATED RINGERS 1,000 ML IV SCH (15:25)
[2020-10-18] MEDS: morphine SULFATE 10 MG/ML, 1ML IVPush PRN (15:35)
[2020-10-18] MEDS ORDERED: PROMETHAZINE 25 MG/ML, 1ML IM PRN (16:30)
[2020-10-18] MEDS ORDERED: HYDROmorphone 1 MG/ML, 1ML INJ IV ONE (17:00)
[2020-10-18 20:02] VITALS: BP 121/75
[2020-10-19] MEDS: LACTATED RINGERS 1,000 ML IV SCH ×2 (00:41→07:33)
[2020-10-19 01:16] VITALS: BP 130/68
[2020-10-19] MEDS: HYDROcodone/APAP 5/325 TABLET PO PRN ×3 (05:09→17:11)
[2020-10-19 06:01] LABS: BASOPHILS % (AUTO) 0 % (0-1); EOSINOPHILS % (AUTO) 1 % (1-7); LYMPHOCYTES % (AUTO) 13 % (22-44); MEAN CORPUSCULAR HEMOGLOBIN 26.5 pg (27.0-34.8); MEAN CORPUSCULAR HGB CONC 34.2 g/dL (32.4-35.8); MEAN PLATELET VOLUME 7.7 fL (7.4-10.4); MONOCYTES % (AUTO) 7 % (2-9); NEUTROPHILS % (AUTO) 79 % (42-75); PLATELET COUNT 173 x10^3/uL (130-400); RED BLOOD COUNT 4.68 x10^6/uL (3.82-5.3); RED CELL DISTRIBUTION WIDTH 15.9 % (9.6-15.2)
[2020-10-19 06:05] LABS: ANION GAP 8 mmol/L (5-15); CALCIUM 8.3 mg/dL (8.5-10.1); CHLORIDE 107 mmol/L (98-107)
[2020-10-19 06:10] LABS: ALANINE AMINOTRANSFERASE 73 U/L (12-78); ALKALINE PHOSPHATASE 65 U/L (45-117); BILIRUBIN,TOTAL 0.6 mg/dL (0.2-1.0); TOTAL PROTEIN 6.9 g/dL (6.4-8.2)
[2020-10-19] MEDS ORDERED: POTASSIUM CHLORIDE 40 MEQ in SODIUM CHLORIDE 0.9% 500 ML IV ONE (07:00)
[2020-10-19] MEDS ORDERED: POTASSIUM CHLORIDE 20 MEQ TAB.ER.PRT PO ONE (07:00)
[2020-10-19 07:25] VITALS: BP 101/64
[2020-10-19] MEDS: CEFTRIAXONE 1,000 MG in DEXTROSE 5% 50 ML IVPB SCH (07:33)
[2020-10-19] MEDS: AMLODIPINE 5 MG TABLET PO SCH (07:34)
[2020-10-19] MEDS: ONDANSETRON 2MG/ML, 2ML IVPush PRN (08:39)
[2020-10-19] MEDS: morphine SULFATE 10 MG/ML, 1ML IVPush PRN (08:40)
[2020-10-19] MEDS ORDERED: metFORMIN 500 MG TABLET PO SCH (09:00)
[2020-10-19 12:19] VITALS: BP 102/64
[2020-10-19] MEDS: ACETAMINOPHEN 325 MG TABLET PO PRN (12:23)
[2020-10-19] MEDS: metFORMIN 500 MG TABLET PO SCH (17:25)
[2020-10-19] MEDS ORDERED: MIDAZOLAM 1 MG/ML, 2ML ONE (18:17)
[2020-10-19] MEDS ORDERED: FENTANYL PF 100 MCG/2ML ONE (18:18)
[2020-10-19] MEDS ORDERED: OMNIPAQUE 350 MG/ML, 50 ML BOTTLE ONE (18:28)
[2020-10-19] MEDS ORDERED: HYDROmorphone 1 MG/ML, 1ML INJ IVPush PRN (18:30)
[2020-10-19] MEDS ORDERED: MEPERIDINE/PF 25MG/0.5ML IVPush PRN (18:30)
[2020-10-19] MEDS ORDERED: HYDROcodone/APAP 7.5-325MG/15ML UDC PO PRN (18:30)
[2020-10-19] MEDS ORDERED: FENTANYL PF 100 MCG/2ML IV PRN (18:30)
[2020-10-19] MEDS ORDERED: ONDANSETRON 2MG/ML, 2ML IVPush PRN (18:30)
[2020-10-19] MEDS ORDERED: PROMETHAZINE 25 MG/ML, 1ML IVPush PRN (18:30)
[2020-10-19] MEDS ORDERED: OXYcodone 5 MG/5 ML ORAL.SOL UDC PO PRN (18:30)
[2020-10-19 21:10] VITALS: BP 129/71
[2020-10-20 00:09] VITALS: BP 153/93
[2020-10-20] MEDS: ACETAMINOPHEN 325 MG TABLET PO PRN (00:13)
[2020-10-20 06:13] LABS: BASOPHILS % (AUTO) 1 % (0-1); EOSINOPHILS % (AUTO) 1 % (1-7); LYMPHOCYTES % (AUTO) 13 % (22-44); MEAN CORPUSCULAR HEMOGLOBIN 26.2 pg (27.0-34.8); MEAN PLATELET VOLUME 7.3 fL (7.4-10.4); MONOCYTES % (AUTO) 8 % (2-9); NEUTROPHILS % (AUTO) 78 % (42-75); PLATELET COUNT 152 x10^3/uL (130-400); RED BLOOD COUNT 4.69 x10^6/uL (3.82-5.3); RED CELL DISTRIBUTION WIDTH 16.2 % (9.6-15.2)
[2020-10-20 06:25] LABS: CHLORIDE 106 mmol/L (98-107)
[2020-10-20 06:29] LABS: ANION GAP 6 mmol/L (5-15); CALCIUM 8.4 mg/dL (8.5-10.1); CREATININE 0.92 mg/dL (0.55-1.02)
[2020-10-20] MEDS: CEFTRIAXONE 1,000 MG in DEXTROSE 5% 50 ML IVPB SCH (06:38)
[2020-10-20] MEDS: HYDROcodone/APAP 5/325 TABLET PO PRN ×3 (06:38→21:24)
[2020-10-20] MEDS ORDERED: POTASSIUM CHLORIDE 20 MEQ TAB.ER.PRT PO ONE (07:00)
[2020-10-20 07:11] VITALS: BP 101/57
[2020-10-20] MEDS ORDERED: POTASSIUM CHLORIDE 40 MEQ in SODIUM CHLORIDE 0.9% 500 ML IV ONE (07:30)
[2020-10-20] MEDS: AMLODIPINE 5 MG TABLET PO SCH (09:36)
[2020-10-20] MEDS: metFORMIN 500 MG TABLET PO SCH ×2 (09:36→17:36)
[2020-10-20 12:16] VITALS: BP 115/78
[2020-10-20] MEDS ORDERED: MAGNESIUM SULFATE PMX 2GM/50ML 50 ML IV ONE (12:30)
[2020-10-20] MEDS: ONDANSETRON 2MG/ML, 2ML IVPush PRN ×2 (13:49→21:22)
[2020-10-20 19:28] VITALS: BP 98/54
[2020-10-21 02:51] VITALS: BP 114/75
[2020-10-21 06:21] LABS: BASOPHILS % (AUTO) 1 % (0-1); EOSINOPHILS % (AUTO) 4 % (1-7); LYMPHOCYTES % (AUTO) 25 % (22-44); MEAN CORPUSCULAR HEMOGLOBIN 26.2 pg (27.0-34.8); MEAN CORPUSCULAR HGB CONC 33.6 g/dL (32.4-35.8); MEAN PLATELET VOLUME 7.8 fL (7.4-10.4); MONOCYTES % (AUTO) 8 % (2-9); NEUTROPHILS % (AUTO) 62 % (42-75); PLATELET COUNT 175 x10^3/uL (130-400); RED BLOOD COUNT 4.63 x10^6/uL (3.82-5.3); RED CELL DISTRIBUTION WIDTH 15.9 % (9.6-15.2)
[2020-10-21 06:29] LABS: ANION GAP 5 mmol/L (5-15); CALCIUM 8.4 mg/dL (8.5-10.1); CHLORIDE 108 mmol/L (98-107); CREATININE 0.65 mg/dL (0.55-1.02)
[2020-10-21] MEDS: CEFTRIAXONE 1,000 MG in DEXTROSE 5% 50 ML IVPB SCH (06:35)
[2020-10-21] MEDS: metFORMIN 500 MG TABLET PO SCH (07:36)
[2020-10-21] MEDS: AMLODIPINE 5 MG TABLET PO SCH (07:36)
[2020-10-21] MEDS: ONDANSETRON 2MG/ML, 2ML IVPush PRN (09:04)
[2020-10-21 09:35] VITALS: BP 100/68
[2020-10-21] MEDS ORDERED: SULF1TAB24 PO (11:28)
[2020-10-21 13:39] VITALS: BP 95/63
== END 2020-10-21 13:58 | disposition home or self-care (01) | DRG 443 ==
LOC: ED 07:12 → 3N 12:01 → SUATTDRO 13:09
PROVIDERS: ADMIT Hospitalist; ATTEND Family Medicine
PROC: 0T9B70Z Drainage of Bladder with Drainage Device, Via Natural or Artificial Opening (ICD-10-PCS; 2020-10-18)
PROC: 0TC78ZZ Extirpation of Matter from Left Ureter, Via Natural or Artificial Opening Endoscopic (ICD-10-PCS; 2020-10-19)
PROC: 0T778DZ Dilation of Left Ureter with Intraluminal Device, Via Natural or Artificial Opening Endoscopic (ICD-10-PCS; 2020-10-19)
PROC: BT1F1ZZ Fluoroscopy of Left Kidney, Ureter and Bladder using Low Osmolar Contrast (ICD-10-PCS; 2020-10-19)
PROC: 0TC18ZZ Extirpation of Matter from Left Kidney, Via Natural or Artificial Opening Endoscopic (ICD-10-PCS; principal; 2020-10-19 18:00)
DX: N13.6 Pyonephrosis (principal); Z68.43 Body mass index [BMI] 50.0-59.9, adult; E66.01 Morbid (severe) obesity due to excess calories; E11.9 Type 2 diabetes mellitus without complications; E21.3 Hyperparathyroidism, unspecified; E55.9 Vitamin D deficiency, unspecified; E87.6 Hypokalemia; I10 Essential (primary) hypertension; J98.11 Atelectasis; N20.2 Calculus of kidney with calculus of ureter; R74.01 Elevation of levels of liver transaminase levels; Z20.822 Contact with and (suspected) exposure to COVID-19; R09.02 Hypoxemia; Z87.442 Personal history of urinary calculi; Z90.49 Acquired absence of other specified parts of digestive tract
CPT/HCPCS: 36415; 74176; 74420; 76770; 80048; 80053; 81001; 82040; 83735; 84703; 85025; 87040; 87635; 88300; G0378; J0696; J1170; J2250; J2405; J3010; J3480; Q9967; C1758; C1769; C2617; J2270; J3475; J7030; J7040; J7120

== ENCOUNTER 2020-10-26 15:55 | Emergency (ER) | payer MEDICAID ==
[~2020-10-26] VITALS: Ht 162.6 cm; Wt 142.2 kg
[~2020-10-26 15:55] MED LIST changes: +HYDR12.517 PO; +METF500T17 PO; +PHEN37.53 PO; +SULF1TAB24 PO; +[UNRECOGNIZED DRUG - CODE] IM; +vitamin d PO
--- NOTE | 2020-10-26 17:30 | NUR ---
ASSOCIATE SOFTWARE DEVELOPMENT ENGINEER: PT TO ROOM FROM ESVIN BARKER
--- NOTE | 2020-10-26 17:53 | NUR ---
ASSUMED CARE OF PT. PT WAS HERE WEEK AGO W/ KIDNEY STONE AND HAD STENT PLACED. PT REPORTS SHE FEELS LIKE WHEN SHE VOIDS SHE IS PEEING "RAZOR BLADE" ITS SHARP THEN ARIAS. PT REPORTS PAIN WHEN WALKING, OR WHEN FIRST SITS DOWN, FEELS IF IT STABS/MOVES. STARTED PEEING BLOOD THIS MORNING, LIGHT PINK TO REALLY DARK. PT IN GOWN, HOOKED TO BP MONITOR AND SPO2. NADN. CALL LIGHT W/IN REACH.
[2020-10-26] MEDS ORDERED: ONDANSETRON 2MG/ML, 2ML ONE (18:24)
[2020-10-26] MEDS ORDERED: MORPHINE SULFATE 4 MG/ML, 1ML ONE (18:24)
[2020-10-26 18:27] LABS: BASOPHILS % (AUTO) 1 % (0-1); EOSINOPHILS % (AUTO) 2 % (1-7); LYMPHOCYTES % (AUTO) 34 % (22-44); MEAN CORPUSCULAR HEMOGLOBIN 25.8 pg (27.0-34.8); MEAN CORPUSCULAR HGB CONC 33.4 g/dL (32.4-35.8); MEAN PLATELET VOLUME 6.9 fL (7.4-10.4); MONOCYTES % (AUTO) 5 % (2-9); NEUTROPHILS % (AUTO) 57 % (42-75); PLATELET COUNT 344 x10^3/uL (130-400); RED BLOOD COUNT 5.04 x10^6/uL (3.82-5.3); RED CELL DISTRIBUTION WIDTH 15.8 % (9.6-15.2)
[2020-10-26] MEDS ORDERED: ONDANSETRON 2MG/ML, 2ML IVPush ONE (18:30)
[2020-10-26] MEDS ORDERED: MORPHINE SULFATE 4 MG/ML, 1ML IVPush PRN (18:30)
[2020-10-26] MEDS ORDERED: SODIUM CHLORIDE FLUSH 10ML SYR IVF ONE (18:30)
--- NOTE | 2020-10-26 18:30 | NUR ---
RADIOLOGY BEDSIDE COMPLETING US AT THIS TIME. NADN, CALL LIGHT W/IN REACH.
[2020-10-26 18:35] LABS: ALANINE AMINOTRANSFERASE 85 U/L (12-78); ALBUMIN 3.5 g/dL (3.4-5.0); ANION GAP 7 mmol/L (5-15); CALCIUM 9.6 mg/dL (8.5-10.1); CHLORIDE 108 mmol/L (98-107); CREATININE 0.83 mg/dL (0.55-1.02)
[2020-10-26 18:37] LABS: ALKALINE PHOSPHATASE 79 U/L (45-117); BILIRUBIN,TOTAL 0.3 mg/dL (0.2-1.0)
--- NOTE | 2020-10-26 19:03 | NUR ---
PIV STARTED, PT MEDICATED PER JUN. STRAIGHT CATH'D SAMPLE WALKED DOWN TO LAB. NADN, CALL LIGHT W/IN REACH.
[2020-10-26 19:13] LABS: MICROSCOPIC INDICATED
[2020-10-26 19:57] VITALS: BP 134/87
--- NOTE | 2020-10-26 19:58 | NUR ---
PT INFORMED UROLOGY IS BEING CONSULTED. SHE IS ON GURNEY, ON PHONE DENIES ANY NEED PAIN IS IMPROVED. FREDDIEN, CALL LIGHT W/IN REACH.
--- NOTE | 2020-10-26 20:50 | NUR ---
ranjitar report to Ivette, she will be dc'ing pt once paperwork is ready.
== END 2020-10-26 21:10 | disposition home or self-care (01) ==
LOC: ED 17:52
DX: N30.01 Acute cystitis with hematuria (principal); M54.5 Low back pain; I10 Essential (primary) hypertension; Z90.49 Acquired absence of other specified parts of digestive tract
CPT/HCPCS: 36415; 76770; 80053; 81001; 85025; 87086; 96374; 96375; 99284; J2270; J2405